=== PATIENT | female | born 1970 ===

== ENCOUNTER 2016-09-23 11:59 | Emergency (ER) | payer MEDICAID ==
[2016-09-23 12:00] VITALS: BMI 33.6
[2016-09-23 12:39] LABS: HCG,QUALITATIVE URINE NEGATIVE (NEGATIVE)
[2016-09-23 12:50] LABS: SQUAMOUS EPITHIAL < 1 /hpf (0-5); URINE BACTERIA OCC (<OCC); URINE BILIRUBIN NEGATIVE (NEGATIVE); URINE BLOOD 3+ (NEGATIVE); URINE CLARITY Hazy (Clear); URINE COLOR Straw (YELLOW); URINE GLUCOSE (UA) NORMAL (Normal); URINE LEUKOCYTE ESTERASE 3+ Leu/uL (Negative); URINE NITRATE NEGATIVE (NEGATIVE); URINE PROTEIN 2+ mg/dL (NEGATIVE); URINE UROBILINOGEN NORMAL mg/dL (0.2-1.0)
--- NOTE | 2016-09-23 13:14 | C.PDOC ---
History Of Present Illness 46 year old female presents to the ED with complaints of hematuria and dysuria since yesterday with back pain. She states she took acyclovir (left over from when she had a cold sore) for symptoms with no relief. Patient denies vaginal discharge, fever, or any previous history of similar symptoms. Time Seen by Provider: 09/23/16 12:08 Chief Complaint (Nursing): Female Genitourinary History Per: Patient, Recruitment Assistant History/Exam Limitations: no limitations Onset/Duration Of Symptoms: Hrs (since last night ) Current Symptoms Are (Timing): Still Present Quality Of Discomfort: "Pain" Associated Symptoms: Urinary Symptoms (dysuria and hematuria ). denies: Fever, Chills, Nausea, Vomiting, Diarrhea Recent travel outside of the [place]: No Past Medical History Reviewed: Historical Data, Nursing Documentation, Vital Signs Vital Signs: Last Vital Signs Temp 98 F 09/23/16 13:23 Pulse 89 09/23/16 13:23 Resp 14 09/23/16 13:23 BP 148/84 09/23/16 13:23 Pulse Ox 99 09/23/16 13:41 - Medical History PMH: Asthma, HTN, Hypercholesterolemia Surgical History: Denies: Endoscopy Family History: States: Unknown Family Hx - Social History Hx Alcohol Use: No Hx Substance Use: No - Immunization History Hx Tetanus Toxoid Vaccination: No Hx Influenza Vaccination: No Hx Pneumococcal Vaccination: No Review Of Systems Constitutional: Negative for: Fever, Chills Cardiovascular: Negative for: Chest Pain Respiratory: Negative for: Shortness of Breath Gastrointestinal: Negative for: Nausea, Vomiting, Abdominal Pain, Diarrhea Genitourinary: Positive for: Dysuria, Hematuria Musculoskeletal: Positive for: Back Pain Physical Exam - Physical Exam Appears: Non-toxic, No Acute Distress Skin: Warm, Dry Head: Atraumatic, Normacephalic Eye(s): bilateral: Normal Inspection, EOMI Oral Mucosa: Moist Neck: Normal ROM, Supple Chest: Symmetrical, No Deformity Cardiovascular: Rhythm Regular Respiratory: Normal Breath Sounds, No Rhonchi, No Wheezing Gastrointestinal/Abdominal: Soft, Tenderness (suprapubic tenderness), No Distention, No Guarding, No Rebound Back: No CVA Tenderness, No Vertebral Tenderness, Paraspinal Tenderness ( paralumbar tenderness ) Extremity: Normal ROM, No Tenderness Neurological/Psych: Oriented x3, Normal Speech, Normal Cognition ED Course And Treatment O2 Sat by Pulse Oximetry: 99 (room air ) Progress Note: A UA was performed and patient given macrobid and pyridium. On reassessment, patient is resting comfortably, and is in no acute distress. Patient was instructed to follow up with physician/clinic in 1-2 days for further evaluation. Instructed to stop acyclovir and return to ER if symtpoms persist or worsen. Disposition - Disposition Referrals: Tim Swartz MD [Medical Doctor] - Disposition: HOME/ ROUTINE Disposition Time: 13:13 Condition: STABLE Additional Instructions: Vaya a duenas mdico o la clnica en 1-3 caba sin falta, para mas evaluacin. [place] los medicamentos vivian indicado. Volver a la xiao de emergencia en cualquier momento si los sntomas persisten o empeoran. Prescriptions: Nitrofurantoin Macrocrystals [Macrobid] 1 cap PO BID #14 cap Phenazopyridine HCl [Pyridium] 100 mg PO TID #6 tablet Instructions: Urinary Tract Infection in Women (ED) Print Language: URDU - Clinical Impression Clinical Impression: UTI (urinary tract infection) - Scribe Statement The provider has reviewed the documentation as recorded by the Scribe Chasity Grayson All medical record entries made by the Scribe were at my direction and personally dictated by me. I have reviewed the chart and agree that the record accurately reflects my personal performance of the history, physical exam, medical decision making, and the department course for this patient. I have also personally directed, reviewed, and agree with the discharge instructions and disposition.
[2016-09-23 13:26] VITALS: BP 148/84; PULSE 89; RESP 14; TEMP 98
[2016-09-23 13:37] VITALS: O2SAT 99
== END 2016-09-23 13:26 | disposition home or self-care (01) ==
LOC: C.ER 11:59
DX: N39.0 Urinary tract infection, site not specified (principal); B96.20 Unspecified Escherichia coli [E. coli] as the cause of diseases classified elsewhere; R31.9 Hematuria, unspecified

== ENCOUNTER 2017-02-11 09:18 | Emergency (ER) | payer MEDICAID ==
[2017-02-11 09:18] VITALS: BMI 33.6
[2017-02-11 09:25] VITALS: TEMP 98.8; O2SAT 99
[2017-02-11 10:22] VITALS: BP 125/81; PULSE 82; RESP 18
--- NOTE | 2017-02-11 13:56 | C.PDOC ---
History Of Present Illness 46 year old female presents to the ED for evaluation of upper respiratory infection symptoms for 1 week. Patient reports cough that is productive of white phlegm. She denies chest pain, shortness of breath, nausea, and vomiting. Chief Complaint (Nursing): Cough, Cold, Congestion History Per: Patient History/Exam Limitations: no limitations Onset/Duration Of Symptoms: Days (3) Current Symptoms Are (Timing): Still Present Sick Contacts (Context): None Associated Symptoms: Cough, Sputum (white ). denies: Nausea, Vomiting Past Medical History Reviewed: Historical Data, Nursing Documentation, Vital Signs Vital Signs: Last Vital Signs Temp 98.8 F 02/11/17 09:22 Pulse 82 02/11/17 10:21 Resp 18 02/11/17 10:21 BP 125/81 02/11/17 10:21 Pulse Ox 99 02/11/17 14:00 - Medical History PMH: Asthma, HTN, Hypercholesterolemia Denies: Colonic Polyps, Fractures, Chronic Kidney Disease, Sleep Apnea Surgical History: No Surg Hx Denies: Endoscopy Family History: States: Unknown Family Hx - Social History Hx Alcohol Use: No Hx Substance Use: No - Immunization History Hx Tetanus Toxoid Vaccination: No Hx Influenza Vaccination: No Hx Pneumococcal Vaccination: No Review Of Systems Cardiovascular: Negative for: Chest Pain Respiratory: Positive for: Cough, Sputum (white). Negative for: Shortness of Breath Gastrointestinal: Negative for: Nausea, Vomiting Physical Exam - Physical Exam Appears: Non-toxic, No Acute Distress Skin: Normal Color, Warm, Dry Head: Atraumatic, Normacephalic Eye(s): bilateral: Normal Inspection Ear(s): Bilateral: Normal Nose: Normal, No Discharge Oral Mucosa: Moist Throat: Normal, No Erythema, No Exudate Neck: Supple Chest: Symmetrical, No Deformity, No Tenderness Cardiovascular: Rhythm Regular, No Murmur Respiratory: Normal Breath Sounds, No Rales, No Rhonchi, No Wheezing Neurological/Psych: Oriented x3, Normal Speech, Normal Cognition ED Course And Treatment O2 Sat by Pulse Oximetry: 99 (on RA) Pulse Ox Interpretation: Normal Medical Decision Making Medical Decision Making: On reassessment, patient is resting comfortably, remains afebrile at this time, and is showing no signs of distress. Patient is stable for discharge and is advised to follow up with PMD within 3-4 days for further evaluation and/or return to the ED if symptoms persist or worsen. Disposition - Disposition Referrals: Hannah Corey Req, [Non-Staff] - Disposition: HOME/ ROUTINE Disposition Time: 10:40 Condition: GOOD Additional Instructions: Thank you for letting us take care of you today. The emergency medical care you received today was directed at your acute symptoms. If you were prescribed any medication, please fill it and take as directed. It may take several days for your symptoms to resolve. Return to the Emergency Department if your symptoms worsen, do not improve, or if you have any other problems. Please contact your doctor or call one of the physicians/clinics you have been referred to that are listed on the Patient Visit Information form that is included in your discharge packet. Bring any paperwork you were given at discharge with you along with any medications you are taking to your follow up visit. Our treatment cannot replace ongoing medical care by a primary care provider (PCP) outside of the emergency department. Thank you for allowing the [facility] team to be part of your care today. Follow up with your doctor in 3-4 days for re-evaluation and further management. Nette por dejarnos atenderlo hoy. La atencin mdica de emergencia que recibi hoy estaba dirigida a tawanna sntomas agudos. Si le prescribieron algn medicamento, llnelo y tome segn las indicaciones. Tawanna sntomas pueden tardar varios caba en resolverse. Regrese al Departamento de Emergencia si tawanna s ntomas empeoran, no mejoran o si tiene algn otro problema. Comunquese con duenas mdico o llame a onelia de los mdicos / clnicas a los que barrientos sido referido que figura en el formulario de Informacin de visita del paciente que se incluye en duenas paquete de marlene. Traiga todos los documentos que recibi al momento del marlene junto con los medicamentos que est tomando en duenas visita de seguimiento. Nuestro tratamiento no puede reemplazar la atencin mdica en curso por parte de un proveedor de atencin primaria (PCP) fuera del departamento de emergencias. Nette por permitir que el equipo de [facility] sea parte de duenas cuidado hoy. Holly un seguimiento con duenas mdico en 3-4 caba para neema reevaluacin y administracin adicional. Prescriptions: Benzonatate [Tessalon Perle] 100 mg PO Q8 PRN #20 capsule PRN Reason: Cough Guaifenesin [Mucinex] 600 mg PO Q12 PRN #10 tab.er.12h PRN Reason: congestion Instructions: Upper Respiratory Infection (ED) Forms: Gen Discharge Inst Lao Print Language: DANISH - Clinical Impression Clinical Impression: Upper respiratory infection - Scribe Statement The provider has reviewed the documentation as recorded by the Scribe (Michelle Allen) Provider Attestation: All medical record entries made by the Scribe were at my direction and personally dictated by me. I have reviewed the chart and agree that the record accurately reflects my personal performance of the history, physical exam, medical decision making, and the department course for this patient. I have also personally directed, reviewed, and agree with the discharge instructions and disposition.
== END 2017-02-11 10:22 | disposition home or self-care (01) ==
LOC: C.ER 09:18
DX: J06.9 Acute upper respiratory infection, unspecified (principal)